=== PATIENT | female | born 1985 | race Caucasian/White ===

== ENCOUNTER → 2023-02-17 | Outpatient (CLI) | payer OTHER | LOC: M RAD 07:21 | PROVIDERS: ATTEND Internal Medicine | DX: K80.80 Other cholelithiasis without obstruction (principal) ==

== ENCOUNTER 2023-05-25 08:02 | Day surgery (SDC) | payer OTHER ==
[~2023-05-25] VITALS: Ht 170.2 cm; Wt 103.2 kg
[~2023-05-25 08:02] MED LIST: ACET32TAB PO; SERT50TA29 PO
[2023-05-25] MEDS ORDERED: ROCURONIUM BROMIDE 50MG/5ML VIAL As Ordered ONE (08:15)
[2023-05-25] MEDS ORDERED: MIDAZOLAM INJ 2MG/2ML VIAL As Ordered ONE (08:15)
[2023-05-25] MEDS ORDERED: LIDOCAINE 2% 100MG/5ML SDV (FOR ANES.) As Ordered ONE (08:15)
[2023-05-25] MEDS ORDERED: ONDANSETRON 4MG 2ML VIAL As Ordered ONE (08:15)
[2023-05-25] MEDS ORDERED: propofoL 200 MG/20 ML VIAL As Ordered ONE (08:15)
[2023-05-25] MEDS ORDERED: fentaNYL 100 MCG/2 ML INJECTION As Ordered ONE (08:15)
[2023-05-25] MEDS ORDERED: KETOROLAC 60MG 2ML VIAL As Ordered ONE (08:16)
[2023-05-25] MEDS: LR 1,000 ML IV SCH (08:41)
[2023-05-25] MEDS ORDERED: PHENYLephrine 500MCG 5ML (100MCG/ML) SYRINGE As Ordered ONE (09:05)
[2023-05-25] MEDS ORDERED: ePHEDrine SULFATE 25 MG/5 ML(5MG/ML) SYRINGE As Ordered ONE (09:05)
[2023-05-25] MEDS: INDOCYANINE GREEN 25MG VIAL (IC-GREEN) IV ONE (09:10)
[2023-05-25] MEDS: ceFAZolin SOD 2 GM in IV 1 EA IV ONE (09:18)
[2023-05-25] MEDS: HEPARIN SOD (PORCINE) 5000UNITS/ML 1ML VIAL/SYRINGE SQ ONE (09:31)
[2023-05-25] MEDS ORDERED: LR 1,000 ML IV SCH (10:10)
[2023-05-25] MEDS ORDERED: fentaNYL 100 MCG/2 ML INJECTION IV PRN (10:10)
[2023-05-25] MEDS ORDERED: HYDROMORPHONE HCL 0.5 MG/ 0.5 ML SYRINGE IV PRN (10:10)
[2023-05-25] MEDS: oxyCODONE 5MG TAB PO PRN (11:03)
[2023-05-25] MEDS: ONDANSETRON 4MG 2ML VIAL IV PRN (11:04)
[2023-05-25] MEDS: METOCLOPRAMIDE INJ 10MG/2ML VIAL IV ONE (11:22)
[2023-05-25 12:13] VITALS: BP 99/60; TEMP 97.3; O2SAT 96
== END 2023-05-25 12:26 | disposition home or self-care (01) ==
LOC: M SDC 08:02
PROVIDERS: ATTEND Surgery
DX: K80.10 Calculus of gallbladder with chronic cholecystitis without obstruction (principal); K21.9 Gastro-esophageal reflux disease without esophagitis; F41.9 Anxiety disorder, unspecified; F32.A Depression, unspecified; Z79.899 Other long term (current) drug therapy
CPT/HCPCS: 47562; 88304; J0665; J0690; J1100; J1885; J2250; J2371; J2405; J2765; J3010; Q9968; S2900

== ENCOUNTER → 2024-05-20 | Outpatient (CLI) | payer OTHER ==
[2024-05-20 13:53] LABS: BASO # 0.1 10^3/uL (0.0-0.2); BASO % 0.5 % (0.0-1.0); EOS # 0.1 10^3/uL (0.0-0.5); EOS % 1.3 % (0.0-3.0); HEMATOCRIT 39.3 % (36.0-47.0); HEMOGLOBIN 12.6 g/dl (12.0-15.5); MEAN CORPUSCULAR HEMOGLOBIN 28.8 pg (27.0-33.0); MEAN CORPUSCULAR HGB CONC 32.1 g/dl (32.0-36.5); MEAN CORPUSCULAR VOLUME 89.7 fl (80.0-96.0); MONO % 8.9 % (2.0-8.0); NEUTROPHILS # 6.8 10^3/uL (1.5-8.5); NEUTROPHILS % 62.1 % (36.0-66.0); PLATELET COUNT, AUTOMATED 398 10^3/uL (150-450); RED BLOOD COUNT 4.38 10^6/uL (4.00-5.40)
[2024-05-20 14:04] LABS: HEMOGLOBIN A1c 5.1 % (4.0-6.0)
[2024-05-20 14:21] LABS: ALBUMIN 3.6 G/DL (3.2-5.2); ALKALINE PHOSPHATASE 81 U/L (35-104); ALT/SGPT 23 U/L (7.0-40); AST/SGOT 14 U/L (<34); BILIRUBIN,TOTAL 0.3 MG/DL (0.3-1.2); BLOOD UREA NITROGEN 12 MG/DL (9-23); CALCIUM LEVEL 9.7 MG/DL (8.5-10.1); CARBON DIOXIDE LEVEL 26 MMOL/L (20-31); CHLORIDE LEVEL 104 MMOL/L (98-107); CHOLESTEROL LEVEL 201 MG/DL (<200); CHOLESTEROL RISK RATIO 4.05 (<5); CREATININE FOR GFR 0.81 MG/DL (0.55-1.30); GLOMERULAR FILTRATION RATE > 60.0 (>58); GLUCOSE, FASTING 98 MG/DL (60-100); HDL CHOLESTEROL 49.6 MG/DL (>40); NON-HDL-C 151.4 MG/DL; POTASSIUM SERUM 4.8 MMOL/L (3.5-5.1); SODIUM LEVEL 142 MMOL/L (136-145); TOTAL PROTEIN 7.4 G/DL (5.7-8.2); TRIGLYCERIDES LEVEL 172 MG/DL (<150)
[2024-05-20 14:22] LABS: THYROID STIMULATING HORMONE 1.751 uIU/ML (0.55-4.78)
== END ==
LOC: M PLALAB 11:01
PROVIDERS: ATTEND Nurse Practitioner Family
DX: Z00.00 Encounter for general adult medical examination without abnormal findings (principal); Z13.1 Encounter for screening for diabetes mellitus; E78.2 Mixed hyperlipidemia; R53.83 Other fatigue

== ENCOUNTER → 2024-07-01 | Outpatient (REF) | payer OTHER ==
[~2024-07-01] MED LIST changes: +SEMA0.252 SC
== END ==
LOC: M LAB REF 10:50
PROVIDERS: ATTEND Internal Medicine Gastroenterology
DX: R19.4 Change in bowel habit (principal)

== ENCOUNTER 2024-07-13 10:47 | Day surgery (SDC) | payer OTHER ==
[~2024-07-13] VITALS: Ht 170.2 cm; Wt 91.6 kg
[~2024-07-13 10:47] MED LIST changes: +LIDOCAINE 2% 100MG/5ML SDV (FOR ANES.) As Ordered ONE; +propofoL 200 MG/20 ML VIAL As Ordered ONE
[2024-07-13 12:12] VITALS: TEMP 97.3
[2024-07-13 12:28] VITALS: BP 114/66; O2SAT 98
== END 2024-07-13 12:39 | disposition home or self-care (01) ==
LOC: M OPP 10:47
PROVIDERS: ATTEND Internal Medicine Gastroenterology
DX: K64.0 First degree hemorrhoids (principal); R10.32 Left lower quadrant pain; R19.4 Change in bowel habit; Z79.85 Long-term (current) use of injectable non-insulin antidiabetic drugs

== ENCOUNTER → 2024-12-07 | Outpatient (CLI) | payer OTHER ==
[~2024-12-07] MED LIST changes: -LIDOCAINE 2% 100MG/5ML SDV (FOR ANES.) As Ordered ONE; -propofoL 200 MG/20 ML VIAL As Ordered ONE
[2024-12-07 11:39] LABS: BASO # 0.0 10^3/uL (0.0-0.2); BASO % 0.5 % (0.0-1.0); EOS # 0.1 10^3/uL (0.0-0.5); EOS % 1.7 % (0.0-3.0); LYMPH # 2.9 10^3/uL (1.5-5.0); LYMPH % 34.5 % (24.0-44.0); MONO # 0.9 10^3/uL (0.0-0.8); MONO % 10.3 % (2.0-8.0); NEUTROPHILS # 4.4 10^3/uL (1.5-8.5); NEUTROPHILS % 52.8 % (36.0-66.0); PLATELET COUNT, AUTOMATED 383 10^3/uL (150-450)
[2024-12-07 11:58] LABS: ALT/SGPT 34 U/L (7.0-40); AST/SGOT 27 U/L (<34); CALCIUM LEVEL 9.2 MG/DL (8.5-10.1); CARBON DIOXIDE LEVEL 30 MMOL/L (20-31); CHLORIDE LEVEL 105 MMOL/L (98-107); CHOLESTEROL LEVEL 178 MG/DL (<200); CHOLESTEROL RISK RATIO 4.22 (<5); CREATININE FOR GFR 0.82 MG/DL (0.55-1.30); GLOMERULAR FILTRATION RATE > 90.0 (>58); LDL CHOLESTEROL 111.7 MG/DL (<100); NON-HDL-C 135.9 MG/DL; POTASSIUM SERUM 4.2 MMOL/L (3.5-5.1); SODIUM LEVEL 140 MMOL/L (136-145); TRIGLYCERIDES LEVEL 121 MG/DL (<150)
[2024-12-07 12:00] LABS: FREE T4 1.15 NG/DL (0.89-1.76)
== END ==
LOC: M LAB 06:15
PROVIDERS: ATTEND Nurse Practitioner Family
DX: E78.2 Mixed hyperlipidemia (principal); R53.83 Other fatigue